=== PATIENT | female | born 1990 | race Two or more races ===

== ENCOUNTER 2023-06-25 09:03 | Inpatient (IN) | payer MEDICAID ==
[~2023-06-25] VITALS: Ht 154.9 cm; Wt 106.6 kg
[2023-06-25 11:01] LABS: Urine Bacteria FEW /hpf (None Seen); Urine Blood 2+ /uL (Negative); Urine Clarity HAZY (Clear); Urine Color Yellow (Yellow); Urine Mucus FEW (None Seen); Urine Protein, UAD 1+ (Negative); Urine Specific Gravity 1.034 (1.001-1.035); Urine WBC 25 /hpf (0 - 5); Urine pH 6.5 (5.0-8.0)
[2023-06-25 11:03] LABS: Basophils # (auto) 0 10 ^3/uL (0-0.2); Eosinophils # (auto) 0.4 10 ^3/uL (0-0.8); Hemoglobin 9.7 g/dL (12.2-16.2); Lymphocytes # (auto) 2.6 10 ^3/uL (0.4-5.4); Nucleated Red Blood Cells % 0.1 %
[2023-06-25 11:05] LABS: Basophils % (auto) 0.4 % (0.0-2.0); Eosinophils % (auto) 4.3 % (0.0-7.0); Hematocrit 30.9 % (36.0-46.0); Lymphocytes % (auto) 26.7 % (10.0-50.0); Mean Corpuscular Hgb Conc. 31.4 g/dL (32.0-36.0); Mean Corpuscular Volume 79.6 fL (80.0-100.0); Monocytes # (auto) 0.7 10 ^3/uL (0-1.3); Monocytes % (auto) 7.2 % (0.0-12.0); Neutrophils % (auto) 61.4 % (37.0-80.0); Red Blood Cells 3.88 10^6/uL (4.0-5.20); Red Cell Distribution Width 16.4 % (11.8-14.3); White Blood Cell 9.8 10^3/uL (4.4-10.8)
[2023-06-25 11:10] LABS: INR 0.93 (0.9-1.15); Partial Thromboplastin Time 25.4 SEC (24.5-34.5); Prothrombin Time 9.8 sec (9.3-11.8)
[2023-06-25 11:56] LABS: Alanine Aminotransferase 31 U/L (7-40); Albumin 3.5 g/dL (3.2-4.8); Alkaline Phosphatase 97 U/L (46-116); Anion Gap 9.5 (5-15); Aspartate Aminotransferase 15 U/L (13-40); BUN/Creatinine Ratio 20.8 (10.0-20.0); Blood Urea Nitrogen 10 mg/dL (9-23); Calcium 8.3 mg/dL (8.5-10.1); Carbon Dioxide 20.5 mmol/L (20-30); Chloride 108 mmol/L (98-107); Glucose 85 mg/dL (74-106); Sodium 138 mmol/L (136-145); Uric Acid 3.9 mg/dL (3.1-7.8)
[2023-06-25 11:57] LABS: Total Protein 5.8 g/dL (5.7-8.2)
[2023-06-25 12:04] LABS: Protein, Urine 67.7 mg/dL (0.0-11.9)
[2023-06-25 12:07] LABS: Amphetamine Screen, Urine Neg (NEGATIVE); Creatinine, Urine 208.64 mg/dL (30.0-125.0); Urine Protein/Creatinine Ratio 0.32
[2023-06-25 12:10] LABS: Barbiturate Scree,Urine Neg (NEGATIVE); Benzodiazephine Screen, Urine Neg (NEGATIVE); Cannabinoid Screen, Urine Neg (NEGATIVE); Cocaine Screen, Urine Neg (NEGATIVE); Opiate Scree,Urine Neg (NEGATIVE); Phencyclidine Screen, Urine Neg (NEGATIVE)
[2023-06-25] MEDS ORDERED: WITCH HAZEL-GLYCERIN PAD TOP PRN (12:45)
[2023-06-25] MEDS ORDERED: PROMETHAZINE HCL 25 MG/ML 1ML IV PRN (12:45)
[2023-06-25] MEDS ORDERED: LIDOCAINE 2%HCL (LOCAL ANESTH.) INJ 20ML MDV IJ PRN (12:45)
[2023-06-25] MEDS ORDERED: PHISODERM TOP SOLN 240ML BTL TOP PRN (12:45)
[2023-06-25] MEDS ORDERED: PENICILLIN G POT 5MIL/D5 50ML 50 ML IV ONE (12:45)
[2023-06-25] MEDS ORDERED: DERMOPLAST 60ML BOTTLE TOP PRN (12:45)
[2023-06-25] MEDS: hydrALAZINE HCL 20 MG/ML VL IV PRN (12:51)
[2023-06-25] MEDS: LACTATED RINGER'S 1,000 ML IV SCH ×2 (14:36→17:05)
[2023-06-25] MEDS ORDERED: LACT. RINGERS/OXYTOCIN 20UNITS 500 ML IV ONE ×2 (15:45→16:15)
[2023-06-25] MEDS ORDERED: ePHEDrine SULFATE 50 MG/ML AMP IV ONE (16:00)
[2023-06-25] MEDS ORDERED: ROPIVACAINE HCL 200 ML EPI SCH (16:00)
[2023-06-25] MEDS ORDERED: NALOXONE HCL 0.4 MG/ML VIAL IV ONE (16:00)
[2023-06-25] MEDS ORDERED: ROPIVACAINE HCL 200 ML ONE (16:11)
[2023-06-25] MEDS ORDERED: TERBUTALINE SULFATE 1 MG/ML 1ML VIAL SC PRN (17:45)
[2023-06-25] MEDS ORDERED: LACT. RINGERS/OXYTOCIN 20UNITS 1,000 ML IV SCH (17:45)
[2023-06-25] MEDS ORDERED: LACT. RINGERS/OXYTOCIN 20UNITS 1,000 ML IV ONE (17:46)
[2023-06-25] MEDS: PENICILLIN G POTASSIUM 2,500,000 UNITS in D5W 5% 50 ML IV SCH ×2 (18:36→22:29)
[2023-06-25] MEDS: LABETALOL HCL 200 MG TAB PO SCH (22:09)
[2023-06-25] MEDS ORDERED: miSOPROStol 100 mcg TAB SL PRN (23:00)
[2023-06-25] MEDS ORDERED: miSOPROStol 100 mcg TAB PR PRN (23:00)
[2023-06-25] MEDS ORDERED: CARBOPROST TROMETHAMINE 250 MCG/1ML VIAL IM PRN (23:00)
[2023-06-26] MEDS: hydrALAZINE HCL 20 MG/ML VL IV PRN (02:48)
[2023-06-26] MEDS ORDERED: ACETAMINOPHEN 325 MG TAB PO PRN (04:00)
[2023-06-26] MEDS: IBUPROFEN 600 MG TAB PO PRN ×3 (04:18→19:35)
[2023-06-26 07:00] VITALS: BP 127/65; PULSE 74; RESP 16; TEMP 98.1; O2SAT 96
[2023-06-26 07:06] LABS: RPR Non Reactive (Non Reactive)
[2023-06-26 07:30] VITALS: O2SAT 98
[2023-06-26 11:00] VITALS: BP 147/84; PULSE 90; RESP 16; TEMP 98.1; O2SAT 96
[2023-06-26] MEDS: LABETALOL HCL 200 MG TAB PO SCH ×2 (12:22→23:32)
[2023-06-26 15:14] VITALS: BP 110/58; PULSE 80; RESP 15; O2SAT 97
[2023-06-26 19:00] VITALS: BP 123/58; PULSE 78; RESP 18; TEMP 97.7
[2023-06-26] MEDS ORDERED: TETANUS-DIPTH-ACEL PERTUSSIS 0.5ML SYR Tdap IM ONE (19:30)
[2023-06-26] MEDS ORDERED: DOCUSATE SOD 100 MG CAP PO SCH (22:00)
[2023-06-26 23:30] VITALS: BP 124/67; PULSE 76; RESP 16; TEMP 97.8; O2SAT 99
[2023-06-27 03:00] VITALS: BP 119/58; PULSE 74; RESP 18; TEMP 98.4; O2SAT 97
[2023-06-27] MEDS: IBUPROFEN 600 MG TAB PO PRN (06:54)
[2023-06-27 06:55] VITALS: BP 139/82; PULSE 70; RESP 17; TEMP 97.6; O2SAT 98
[2023-06-27] MEDS ORDERED: LABE300T3 PO (07:22)
[2023-06-28 19:06] LABS: Treponema pallidum Ab (FTA-Ab) Non Reactive (Non Reactive)
== END 2023-06-27 10:51 | disposition home or self-care (01) | DRG 560 ==
LOC: LDRP 09:03 → OBSVTOIN 12:33 → LDRP 12:42
PROVIDERS: ADMIT Obstetrics & Gynecology; ATTEND Obstetrics & Gynecology
PROC: 3E033VJ Introduction of Other Hormone into Peripheral Vein, Percutaneous Approach (ICD-10-PCS; 2023-06-25)
PROC: 10E0XZZ Delivery of Products of Conception, External Approach (ICD-10-PCS; principal; 2023-06-26)
PROC: 0HQ9XZZ Repair Perineum Skin, External Approach (ICD-10-PCS; 2023-06-26)
DX: O14.14 Severe pre-eclampsia complicating childbirth (principal); Z37.0 Single live birth; O60.23X0 Term delivery with preterm labor, third trimester, not applicable or unspecified; O69.81X0 Labor and delivery complicated by cord around neck, without compression, not applicable or unspecified; O70.0 First degree perineal laceration during delivery; Z3A.37 37 weeks gestation of pregnancy
CPT/HCPCS: 36415; 59025; 59409; 76805; 80053; 80307; 81001; 81002; 82570; 84156; 84550; 85025; 85610; 85730; 86592; 86703; 86762; 86850; 86900; 86901; 87340; 90715; 94760; 96360; 96361; 96365; 96366; 96372; 96374; G0378; J2540; J2590; J7060